=== PATIENT | female | born 1965 | race Caucasian/White ===

== ENCOUNTER 2018-03-15 21:25 | Emergency (ER) | payer OTHER ==
[2018-03-16] MEDS: HYDROCODONE/APAP (5/325) TAB PO (01:58)
[2018-03-16] MEDS: KETOROLAC 15 MG INJ IM (01:59)
== END 2018-03-16 04:28 | disposition home or self-care (01) ==
LOC: FTE 21:25
DX: S19.9XXA Unspecified injury of neck, initial encounter (principal); S39.92XA Unspecified injury of lower back, initial encounter; V43.52XA Car driver injured in collision with other type car in traffic accident, initial encounter
CPT/HCPCS: 72040; 72100; 96372; 99284-25